=== PATIENT | male | born 1990 | race Caucasian/White ===

== ENCOUNTER 2018-11-15 06:30 | Emergency (ER) | payer SELFPAY ==
[~2018-11-15] VITALS: Ht 172.7 cm; Wt 89.3 kg
[2018-11-15 06:33] VITALS: BP 168/112
[2018-11-15] MEDS ORDERED: LISI-167 PO (06:35)
[2018-11-15] MEDS ORDERED: MIRT15TA94 PO (06:35)
[2018-11-15] MEDS ORDERED: ATOM100C PO (06:35)
--- NOTE | 2018-11-15 07:03 | NUR ---
Patient given discharge instructions and they have confirmed that they understand the instructions. Patient ambulatory with steady gait.
== END 2018-11-15 07:05 | disposition home or self-care (01) ==
LOC: ED 06:55
DX: L03.114 Cellulitis of left upper limb (principal); J45.909 Unspecified asthma, uncomplicated
CPT/HCPCS: 99283

== ENCOUNTER 2018-12-19 11:08 | Emergency (ER) | payer OTHER ==
[~2018-12-19] VITALS: Ht 172.7 cm; Wt 82.0 kg
[~2018-12-19 11:08] MED LIST: ATOM100C PO; LISI-167 PO; MIRT15TA94 PO
[2018-12-19 11:17] VITALS: BP 152/95
[2018-12-19] MEDS ORDERED: FLUORESCEIN/BENOXINATE 5 ML DROPS EACHEYE ONE (11:30)
--- NOTE | 2018-12-19 12:26 | NUR ---
Pt provided w/ d/c papers, instructions & baby shampoo. Verb. understanding of instructions. Providing clean clothing to wear home then will be d/c.
== END 2018-12-19 12:29 | disposition home or self-care (01) ==
LOC: ED 12:13
DX: H10.213 Acute toxic conjunctivitis, bilateral (principal); F17.200 Nicotine dependence, unspecified, uncomplicated; J45.909 Unspecified asthma, uncomplicated
CPT/HCPCS: 99283

== ENCOUNTER 2019-06-26 01:22 | Emergency (ER) | payer MEDICAID, OTHER ==
[~2019-06-26] VITALS: Ht 172.7 cm; Wt 86.6 kg
[2019-06-26] MEDS ORDERED: LIDOCAINE 1%, 2ML INFIL ONE (02:00)
[2019-06-26] MEDS ORDERED: SODIUM CHLORIDE FLUSH 10ML SYR IVF ONE (02:00)
[2019-06-26 02:08] LABS: BASOPHILS # (AUTO) 0.12 x10^3/uL (0-0.1); BASOPHILS % (AUTO) 1 % (0-1); EOSINOPHILS # (AUTO) 0.12 x10^3/uL (0-0.4); EOSINOPHILS % (AUTO) 1 % (1-7); HCT (SEDRATE) 35.5 % (39.2-51.8); LYMPHOCYTES % (AUTO) 29 % (22-44); MD NO; MEAN CORPUSCULAR HEMOGLOBIN 29.9 pg (27.5-34.5); MEAN CORPUSCULAR HGB CONC 33.1 g/dL (33.2-36.2); MEAN CORPUSCULAR VOLUME 90.3 fL (81-97); MEAN PLATELET VOLUME 8.3 fL (7.4-10.4); MONOCYTES # (AUTO) 0.81 x10^3/uL (0.2-0.8); MONOCYTES % (AUTO) 9 % (2-9); NEUTROPHILS # (AUTO) 5.43 x10^3/uL (1.8-6.8); NEUTROPHILS % (AUTO) 60 % (42-75); PLATELET COUNT 305 x10^3/uL (130-400); RED BLOOD COUNT 3.93 x10^6/uL (4.38-5.82); RED CELL DISTRIBUTION WIDTH 14.8 % (9.4-14.8)
[2019-06-26 02:19] LABS: ALBUMIN 3.5 g/dL (3.4-5.0); ANION GAP 7 mmol/L (5-15); CALCIUM 8.2 mg/dL (8.5-10.1); CHLORIDE 105 mmol/L (98-107); CREATININE 0.97 mg/dL (0.7-1.3)
[2019-06-26] MEDS ORDERED: KETAMINE 10 MG/ML, 20ML ONE (02:21)
[2019-06-26] MEDS ORDERED: KETAMINE 100 MG/ML, 5ML IV ONE ×2 (02:30→03:30)
[2019-06-26] MEDS ORDERED: LIDOCAINE-MPF 1%, 5ML ONE (02:46)
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
--- NOTE | 2019-06-26 03:36 | NUR ---
pt sleeping. vss. mtf
--- NOTE | 2019-06-26 04:29 | NUR ---
"CAN YOU PLEASE COVER ME UP WITH A BLANKEY" OBLIGED
--- NOTE | 2019-06-26 05:41 | NUR ---
PT ABLE TO SELF AMBULATE AROUND ROOM. PT STATES READY TO LEAVE. IV REMOVED. INFORMED. PT ASSISTED WITH URINAL. DC PAPERWORK GIVEN. PT WAS OFFERED TAXI VOUCHER WHICH HE IS UNSURE IF HE WANTS AT THIS TIME.
[2019-06-26 05:43] VITALS: BP 124/74
--- NOTE | 2019-06-26 05:53 | NUR ---
PT SLOWLY GETTING DRESSED AT THIS TIME.
--- NOTE | 2019-06-26 06:05 | NUR ---
PT GIVEN SOCKS PER REQUEST
--- NOTE | 2019-06-26 06:10 | NUR ---
PT GIVEN MORE WOUND CARE INFORMATION PER REQUEST.
--- NOTE | 2019-06-26 06:19 | NUR ---
PT GIVEN BUS PASS PER REQUEST
--- NOTE | 2019-06-26 06:38 | NUR ---
PT GIVEN CRACKERS PER REQUEST. PT WAS INFORMED HE IS BEING EXCESSIVE AND IT IS TIME TO LEAVE.
--- NOTE | 2019-06-26 06:43 | NUR ---
REPORT TAKEN FROM MELONIE WILDER.
== END 2019-06-26 07:09 | disposition home or self-care (01) ==
LOC: ED 07:00
DX: L03.116 Cellulitis of left lower limb (principal); M96.89 Other intraoperative and postprocedural complications and disorders of the musculoskeletal system; F41.9 Anxiety disorder, unspecified; F15.129 Other stimulant abuse with intoxication, unspecified; F17.200 Nicotine dependence, unspecified, uncomplicated; J45.909 Unspecified asthma, uncomplicated
CPT/HCPCS: 20610; 36415; 80048; 82040; 85025; 85651; 86140; 87070; 87205; 89051; 99152; 99153; 99285